=== PATIENT | male | born 1960 | race Caucasian/White ===

== ENCOUNTER 2020-07-16 16:58 | Emergency (ER) | payer BC ==
[~2020-07-16] VITALS: Ht 172.7 cm; Wt 129.0 kg
[2020-07-16] MEDS ORDERED: METOPROL TAR25 MG PO (17:42)
[2020-07-16] MEDS ORDERED: CARVEDILOL6.25 MG PO (17:43)
[2020-07-16] MEDS ORDERED: GLIPIZIDE5 MG PO (17:43)
[2020-07-16] MEDS ORDERED: LISINOPRIL10 MG PO (17:43)
[2020-07-16] MEDS ORDERED: ALLOPURINOL100 MG PO (17:44)
[2020-07-16] MEDS ORDERED: ATORVASTATIN CA20 MG PO (17:44)
[2020-07-16] MEDS ORDERED: FENOFIBRATE145 MG PO (17:44)
[2020-07-16 18:31] LABS: HEMATOCRIT 49.8 % (39.0-50.0); HEMOGLOBIN 15.5 g/dl (14.0-18.0); IMMATURE GRANULOCYTES 0.9 % (0.0-5.0); MEAN CELL VOLUME 89.2 fL CALC (80.0-100.0); MEAN CORPUSCULAR HGB 27.8 pG CALC (26.0-32.0); MEAN CORPUSCULAR HGB CONC 31.1 g/dL CAL (32.0-36.0); NEUT# 5.23 thou/uL (1.82-7.42); RED BLOOD COUNT 5.58 mill/uL (4.70-6.10); RED CELL DISTRI WIDTH 15.4 % (11.5-15.5)
[2020-07-16 18:58] LABS: ALBUMIN 4.1 g/dL (3.2-5.0); BILIRUBIN, TOTAL 0.8 mg/dL (0.0-1.4); CREATININE 1.5 mg/dL (0.7-1.3); MAGNESIUM 1.8 mg/dL (1.6-2.3); POTASSIUM 4.6 mmol/l (3.5-5.1); TOTAL PROTEIN 7.4 g/dL (6.3-8.2)
[2020-07-16] MEDS ORDERED: CIPROFLOXACN500 MG PO (19:52)
[2020-07-16 22:15] VITALS: BP 149/93
== END 2020-07-16 22:16 | disposition home or self-care (01) | DRG 392 ==
LOC: ED 16:58
PROVIDERS: Family Medicine
DX: K52.9 Noninfective gastroenteritis and colitis, unspecified (principal); I10 Essential (primary) hypertension; E11.9 Type 2 diabetes mellitus without complications; E78.00 Pure hypercholesterolemia, unspecified; M10.9 Gout, unspecified; Z79.84 Long term (current) use of oral hypoglycemic drugs

== ENCOUNTER 2020-08-16 04:08 | Observation (INO) | payer BC ==
[~2020-08-16] VITALS: Ht 172.7 cm; Wt 130.5 kg
[~2020-08-16 04:08] MED LIST: ALLOPURINOL100 MG PO; ATORVASTATIN CA20 MG PO; CARVEDILOL6.25 MG PO; CIPROFLOXACN500 MG PO; FENOFIBRATE145 MG PO; GLIPIZIDE5 MG PO; LISINOPRIL10 MG PO; METOPROL TAR25 MG PO
--- NOTE | 2020-08-16 04:08 | NUR ---
BY EMS TO ROOM
[2020-08-16] MEDS ORDERED: ASPIRIN 81 LOW81 MG PO (04:29)
[2020-08-16] MEDS ORDERED: ATORVASTATIN CA40 MG PO (04:32)
--- NOTE | 2020-08-16 05:29 | NUR ---
Reassessment of patient completed. No distress noted.
[2020-08-16 05:53] LABS: IMMATURE GRANULOCYTES 1.5 % (0.0-5.0); MEAN CELL VOLUME 90.3 fL CALC (80.0-100.0); MEAN CORPUSCULAR HGB 28.7 pG CALC (26.0-32.0); MEAN CORPUSCULAR HGB CONC 31.7 g/dL CAL (32.0-36.0); NEUT# 16.57 thou/uL (1.82-7.42); RED BLOOD COUNT 6.7 mill/uL (4.70-6.10); RED CELL DISTRI WIDTH 16.1 % (11.5-15.5)
[2020-08-16 06:09] LABS: ALBUMIN 4.3 g/dL (3.2-5.0); ALKALINE PHOSPHATASE 84 u/l (38-126); AMYLASE 78 u/l (30-110); BILIRUBIN, TOTAL 0.8 mg/dL (0.0-1.4); BUN 47 mg/dL (8-23); BUN/CREATININE RATIO 24 (12-20 (CALC)); CHLORIDE 108 mmol/l (95-108); CREATININE 1.9 mg/dL (0.7-1.3); GFR 36 ML/MIN (>=60 (CALC)); GFR FOR AFR.AMER. 44 ML/MIN (>=60 (CALC)); LIPASE 156 u/l (23-300); SGOT/AST 23 u/l (19-48); SODIUM 135 mmol/l (137-146); TOTAL PROTEIN 8.1 g/dL (6.3-8.2)
[2020-08-16 06:10] LABS: HEMOGLOBIN 19.2 g/dl (14.0-18.0)
[2020-08-16 06:11] LABS: ACT PARTIAL THROMBO TIME 25.1 SECONDS (20.0-32.5); HEMATOCRIT 60.5 % (39.0-50.0); INTERNATIONAL NORMALIZED RATIO 1.3 RATIO (0.7-1.3); PROTHROMBIN TIME 13.3 SECONDS (9.0-12.5)
[2020-08-16 06:18] LABS: D-DIMER 2.12 mg/L (0.19-0.60)
[2020-08-16 06:21] LABS: MYOGLOBIN 80 ng/mL (0 - 121)
[2020-08-16 06:31] LABS: ANION GAP 20 (6-22 (CALC)); CARBON DIOXIDE 13 mmol/l (22-30); POTASSIUM 6.1 mmol/l (3.5-5.1)
[2020-08-16 06:47] LABS: HEMATOCRIT 58.5 % (39.0-50.0); HEMOGLOBIN 18.4 g/dl (14.0-18.0); IMMATURE GRANULOCYTES 1.4 % (0.0-5.0); MEAN CELL VOLUME 90.4 fL CALC (80.0-100.0); MEAN CORPUSCULAR HGB 28.4 pG CALC (26.0-32.0); MEAN CORPUSCULAR HGB CONC 31.5 g/dL CAL (32.0-36.0); NEUT# 16.27 thou/uL (1.82-7.42); RED BLOOD COUNT 6.47 mill/uL (4.70-6.10); RED CELL DISTRI WIDTH 15.8 % (11.5-15.5)
[2020-08-16 06:56] LABS: ALBUMIN 3.9 g/dL (3.2-5.0); BILIRUBIN, TOTAL 0.8 mg/dL (0.0-1.4); CREATININE 1.9 mg/dL (0.7-1.3); TOTAL PROTEIN 7.3 g/dL (6.3-8.2)
[2020-08-16 07:00] LABS: POTASSIUM 6.2 mmol/l (3.5-5.1)
--- NOTE | 2020-08-16 07:00 | NUR ---
RECEIVED REPORT FROM KOBI URIOSTEGUI.
--- NOTE | 2020-08-16 08:00 | NUR ---
COVID SWAB COLLECTED, ISOLATION PRECAUTIONS INITIATED.
--- NOTE | 2020-08-16 09:00 | NUR ---
RESTING QUIETLY, AT BEDSIDE, DENIES NEEDS AT THIS TIME.
--- NOTE | 2020-08-16 10:05 | NUR ---
MD AT BEDSIDE TO DISCUSS RESULTS AND POC.
[2020-08-16 11:56] LABS: URINE BILIRUBIN - DIPSTICK NEGATIVE (NEGATIVE); URINE BLOOD DIPSTICK NEGATIVE (NEGATIVE); URINE COLOR YELLOW; URINE EPITHELIAL CELLS FEW EPI/hpf (0-FEW); URINE GLUCOSE - DIPSTICK NEGATIVE (NEGATIVE); URINE KETONE NEGATIVE (NEGATIVE); URINE LEUK ESTERASE NEGATIVE (NEGATIVE); URINE NITRITE - DIPSTICK NEGATIVE (Negative); URINE PROTEIN - DIPSTICK 30 mg/dL (NEG-TRACE); URINE UROBILINOGEN - DIPSTICK 0.2 E.U./dL (0.2)
--- NOTE | 2020-08-16 12:52 | NUR ---
report called to claus armendariz in med surg
--- NOTE | 2020-08-16 13:45 | NUR ---
TO MED SURG VIA STRETCHER, TELE MONITOR IN PLACE.
--- NOTE | 2020-08-16 14:00 | NUR ---
PT ARRIVES TO ROOM 269 VIA STRETCHER FROM ER, ACCOMPANIED BY ANA Woo RN. PT IS ALERT AND ORIENTED X 3. LUNGS CLEAR, RA. ABDOMEN SOFT, DISTENDED, DIARRHEA TODAY. NO REPORT OF CHEST PAIN OR SHORTNESS OF BREATH. HR ELEVATES WITH ACTIVITY.
[2020-08-16 14:50] VITALS: BP 97/67
--- NOTE | 2020-08-16 15:00 | NUR ---
S: KESHIA ROTH is a 60 M who presents with sepsis. He has a history of diabetes, hypertension, high cholesterol, and gout. All medications in patient's chart were reviewed. O: VS: BP 113/80 mmHg, P 107 bpm, RR 18 breaths per min, T 97.9 F W 129 kg, HT 68 in, Scr= 1.9 mg/dL, CrCl= 73.6 ml/min A: Blood culture is pending. P: Patient is on Zosyn 4.5 g IV Q6H. Vancomycin ordered for pharmacy to dose. Start Vancomycin 1,750 mg IV Q12H. Vancomycin trough is drawn before the 4th dose on 08/18/20 @ 0700. Vancomycin goal trough is between 15-20 mcg/ml. Pharmacy will follow and or advise on antibiotics use as needed.
[2020-08-16 19:45] VITALS: BP 147/72
[2020-08-17] VITALS: BP 102/65
--- NOTE | 2020-08-17 01:16 | NUR ---
PATIENT CURRENTLY RESTING WITH EYES CLOSED. RESPIRATOINS EASY ON ROOM AIR. VAD INFUSING IVF AT 100ML/HR WITH INTERMITENT IVABT. TOLERATING WELL. C/O HEADACHEA EARLIER THIS SHIFT. PRN TYLENOL GIVEN WITH POSITIVE EFFECT. SEPSIS ALERT AT 0000. DR. KAMINSKI NOTIFIED. NO NEW ORDERS. BED IN LOW POSITION. CALL LIGHT WITHIN REACH.
[2020-08-17 04:00] VITALS: BP 130/90
[2020-08-17 06:18] LABS: IMMATURE GRANULOCYTES 0.7 % (0.0-5.0); MEAN CELL VOLUME 90.7 fL CALC (80.0-100.0); MEAN CORPUSCULAR HGB 28.4 pG CALC (26.0-32.0); MEAN CORPUSCULAR HGB CONC 31.4 g/dL CAL (32.0-36.0); NEUT# 7.9 thou/uL (1.82-7.42); RED BLOOD COUNT 5.03 mill/uL (4.70-6.10)
[2020-08-17 06:20] LABS: HEMATOCRIT 45.6 % (39.0-50.0); HEMOGLOBIN 14.3 g/dl (14.0-18.0)
[2020-08-17 06:44] LABS: BILIRUBIN, TOTAL 0.7 mg/dL (0.0-1.4); CHOLESTEROL HDL RATIO 4.9 (<4.4 (CALC)); CREATININE 1.6 mg/dL (0.7-1.3)
[2020-08-17 06:47] LABS: ALBUMIN 3.1 g/dL (3.2-5.0); MAGNESIUM 1.3 mg/dL (1.6-2.3); POTASSIUM 4.2 mmol/l (3.5-5.1); TOTAL PROTEIN 5.8 g/dL (6.3-8.2)
[2020-08-17 08:00] VITALS: BP 140/78
--- NOTE | 2020-08-17 08:30 | NUR ---
AXOX3, RESTING IN THE BED. IV INFUSING, DENIES PAIN AT THIS TIME. REPOSITIONED FOR COMOFRT, SIDE RAILS UP CALL LIGHT INR EACH BED LOCKED IN LOW POSITION, WILL CONTINUE TO MONIOTR THE PATIENT. NO DISTRESS NOTED AT THIS TIME.
[2020-08-17 10:25] VITALS: BP 149/77
[2020-08-17] MEDS ORDERED: CIPROFLOXACN500 MG PO (14:44)
--- NOTE | 2020-08-17 15:18 | NUR ---
H.L. AND TELE D/C DISCHARGE ORDERS GIVEN UNDERSTOOD AND SIGNED BY THE PT . PT LEFT TO GO OT HIS OWN HOME WITH HIS .
== END 2020-08-17 15:22 | disposition home or self-care (01) | DRG 313 ==
LOC: ED 04:08 → ED-I 04:27 → ED 04:27 → ED-I 11:03 → ED 11:27 → MS2 11:28
PROVIDERS: Family Medicine; Nurse Practitioner; ADMIT Internal Medicine; ATTEND Internal Medicine
DX: R07.9 Chest pain, unspecified (principal); K52.9 Noninfective gastroenteritis and colitis, unspecified; I25.10 Atherosclerotic heart disease of native coronary artery without angina pectoris; E11.9 Type 2 diabetes mellitus without complications; I10 Essential (primary) hypertension; E66.01 Morbid (severe) obesity due to excess calories; E87.5 Hyperkalemia; M10.9 Gout, unspecified; E78.5 Hyperlipidemia, unspecified; Z79.84 Long term (current) use of oral hypoglycemic drugs; Z95.5 Presence of coronary angioplasty implant and graft; Z20.822 Contact with and (suspected) exposure to COVID-19
CPT/HCPCS: G0378; J3370; J3475; Q9967